=== PATIENT | male | born 1985 | race Caucasian/White ===

== ENCOUNTER 2020-03-16 06:13 | Emergency (ER) | payer MEDICAID ==
[~2020-03-16] VITALS: Ht 167.6 cm; Wt 84.4 kg
[2020-03-16 06:17] VITALS: Ht 167.6 cm; Wt 84.4 kg
[2020-03-16 08:52] VITALS: BP 128/74
== END 2020-03-16 08:20 | disposition home or self-care (01) ==
LOC: ED 06:13
DX: S61.214A Laceration without foreign body of right ring finger without damage to nail, initial encounter (principal); S61.212A Laceration without foreign body of right middle finger without damage to nail, initial encounter; W23.0XXA Caught, crushed, jammed, or pinched between moving objects, initial encounter; Y93.89 Activity, other specified; Y92.89 Other specified places as the place of occurrence of the external cause; Y99.8 Other external cause status
CPT/HCPCS: 90715; J2001; Q0092

== ENCOUNTER 2020-03-18 15:56 | Emergency (ER) | payer MEDICAID ==
[~2020-03-18] VITALS: Ht 167.6 cm; Wt 83.5 kg
[2020-03-18 16:13] VITALS: Ht 167.6 cm; Wt 83.5 kg
[2020-03-18 16:58] VITALS: BP 122/84
== END 2020-03-18 16:58 | disposition home or self-care (01) ==
LOC: ED 15:56
DX: S61.214D Laceration without foreign body of right ring finger without damage to nail, subsequent encounter (principal); X58.XXXD Exposure to other specified factors, subsequent encounter

== ENCOUNTER 2020-03-24 10:13 | Emergency (ER) | payer MEDICAID ==
[~2020-03-24] VITALS: Ht 167.6 cm; Wt 81.6 kg
[2020-03-24 10:18] VITALS: Ht 167.6 cm; Wt 81.6 kg
[2020-03-24 10:43] VITALS: BP 125/87
== END 2020-03-24 10:43 | disposition home or self-care (01) ==
LOC: ED 10:13
DX: S61.214D Laceration without foreign body of right ring finger without damage to nail, subsequent encounter (principal); X58.XXXD Exposure to other specified factors, subsequent encounter

== ENCOUNTER 2020-07-29 07:05 | Emergency (ER) | payer MEDICAID ==
[~2020-07-29] VITALS: Ht 167.6 cm; Wt 99.8 kg
[2020-07-29 07:29] VITALS: Ht 167.6 cm; Wt 99.8 kg
[2020-07-29 10:44] VITALS: BP 148/87
== END 2020-07-29 10:44 | disposition home or self-care (01) ==
LOC: ED 07:05
DX: S61.343A Puncture wound with foreign body of left middle finger with damage to nail, initial encounter (principal); W45.8XXA Other foreign body or object entering through skin, initial encounter; Y93.89 Activity, other specified; Y92.89 Other specified places as the place of occurrence of the external cause; Y99.8 Other external cause status
CPT/HCPCS: 90715; J0690; J1885; J2001; Q0092